=== PATIENT | female | born 1970 | race Caucasian/White ===

== ENCOUNTER 2020-10-05 05:54 | Inpatient (IN) ==
[2020-10-05] MEDS ORDERED: ceFAZolin 1,000 MG in SYRINGE 1 EACH IV ONE (07:00)
[2020-10-05] MEDS ORDERED: LACTATED RINGERS 1,000 ML IV SCH (08:00)
[2020-10-05] MEDS ORDERED: fentaNYL 100 MCG/2 ML VIAL ONE (08:59)
[2020-10-05] MEDS ORDERED: MIDAZOLAM 2 MG/2 ML VIAL ONE (09:00)
[2020-10-05] MEDS ORDERED: PHENYLEPHRINE 1 MG/10 ML SYRINGE IV ONE (09:19)
[2020-10-05] MEDS ORDERED: GLYCOPYRROLATE 0.4 MG/2 ML VIAL ONE (09:19)
[2020-10-05] MEDS ORDERED: DEXAMETHASONE 4 MG/1 ML VIAL ONE (09:19)
[2020-10-05] MEDS ORDERED: ONDANSETRON 4 MG/2 ML VIAL ONE ×2 (09:19→11:39)
[2020-10-05] MEDS ORDERED: ROCURONIUM 50 MG/5 ML VIAL IV ONE (09:19)
[2020-10-05] MEDS ORDERED: LIDOCAINE 2% 5 ML VIAL ONE (09:19)
[2020-10-05] MEDS ORDERED: propofoL 200 MG/20 ML VIAL IV ONE (09:19)
[2020-10-05] MEDS ORDERED: HYDROmorphone 2 MG/1 ML VIAL ONE (11:39)
[2020-10-05] MEDS: ONDANSETRON 4 MG/2 ML VIAL IV PRN ×2 (11:39→11:40)
[2020-10-05] MEDS: HYDROmorphone 2 MG/1 ML VIAL IV PRN ×3 (11:40→12:08)
[2020-10-05] MEDS ORDERED: HYDROmorphone 2 MG/1 ML VIAL IV PRN (11:50)
[2020-10-05] MEDS ORDERED: PROMETHAZINE 25 MG/1 ML VIAL IM PRN (11:50)
[2020-10-05] MEDS ORDERED: ONDANSETRON 4 MG/2 ML VIAL IV PRN (11:50)
[2020-10-05 12:58] LABS: Basophils # 0.1 10*3/uL (0.0-0.2); Basophils % 0.3 % (0.0-0.8); Eosinophils # 0.1 10*3/uL (0.0-0.87); Eosinophils % 0.3 % (0.00-10.9); Hematocrit 39.3 VOL% (35.7-47.0); Hemoglobin 12.3 GM/DL (12.0-16.0); Immature Granulocytes % 0.6 %; Immature Granulocytes Absolute 0.11 #; Lymphocytes # 1.1 10*3/uL (1.4-4.0); Lymphocytes % 5.7 % (21.3-54.2); Mean Corpuscular HGB Conc 31.3 GM/DL (32-36); Mean Corpuscular Volume 82.6 FL (87-102); Mean Platelet Volume 10.1 FL (9.6-12.0); Monocytes % 2.5 % (1.7-12.7); Neutrophils % 90.6 % (38.7-73.9); Platelet Count 327 T/CUMM (130-400); Red Blood Count 4.76 MC/CUMM (3.8-5.5); Red Cell Distribution Width 14.2 % (9.3-17.3)
[2020-10-05] MEDS: KETOROLAC 30 MG/1 ML VIAL IV SCH ×3 (13:01→23:53)
[2020-10-05] MEDS: LACTATED RINGERS 1,000 ML IV SCH ×2 (13:03→17:16)
[2020-10-05 13:20] LABS: Calcium 8.8 MG/DL (8.5-10.1); Osmolality,Calculated 277.4 MOS/KG (273-304); Potassium 3.9 MMOL/L (3.5-5.1)
[2020-10-05 13:23] LABS: Anisocytosis Slight; Atypical Lymphocytes Few; Lymphocytes 5 % (20-55); Microcytosis Slight; Platelet Estimate Normal; Segmented Neutrophils 94 % (50-85); Total Cells Counted 100
[2020-10-05] MEDS: METHENAMINE HIPPURATE 1 GM TABLET PO SCH (22:25)
[2020-10-05] MEDS: OMEPRAZOLE ODT 20 MG TABLET PER TUBE SCH (22:25)
[2020-10-05] MEDS: CARBIDOPA/LEVODOPA 25-100 MG TABLET PO SCH (22:26)
[2020-10-06] MEDS: LACTATED RINGERS 1,000 ML IV SCH ×3 (04:39→16:47)
[2020-10-06 05:50] LABS: Basophils # 0.1 10*3/uL (0.0-0.2); Basophils % 0.4 % (0.0-0.8); Eosinophils # 0.1 10*3/uL (0.0-0.87); Eosinophils % 0.4 % (0.00-10.9); Hemoglobin 11.3 GM/DL (12.0-16.0); Immature Granulocytes % 0.4 %; Immature Granulocytes Absolute 0.05 #; Lymphocytes # 2.2 10*3/uL (1.4-4.0); Lymphocytes % 15.3 % (21.3-54.2); Mean Corpuscular HGB Conc 31.4 GM/DL (32-36); Mean Corpuscular Volume 81.6 FL (87-102); Mean Platelet Volume 10.3 FL (9.6-12.0); Monocytes % 8.4 % (1.7-12.7); Neutrophils % 75.1 % (38.7-73.9); Platelet Count 311 T/CUMM (130-400); Red Blood Count 4.41 MC/CUMM (3.8-5.5); Red Cell Distribution Width 14.4 % (9.3-17.3); White Blood Count 14.1 T/CUMM (4-12)
[2020-10-06] MEDS: KETOROLAC 30 MG/1 ML VIAL IV SCH ×4 (05:58→23:18)
[2020-10-06 06:08] LABS: Calcium 8.4 MG/DL (8.5-10.1); Osmolality,Calculated 280.3 MOS/KG (273-304); Potassium 3.9 MMOL/L (3.5-5.1)
[2020-10-06] MEDS: ENOXAPARIN 40 MG/0.4 ML SYRINGE SUBCUT SCH (08:56)
[2020-10-06] MEDS: DESVENLAFAXINE 50 MG TABLET PO SCH (08:56)
[2020-10-06] MEDS: hydroCHLOROthiazide 12.5 MG CAPSULE PO SCH (08:56)
[2020-10-06] MEDS: OMEPRAZOLE ODT 20 MG TABLET PER TUBE SCH ×2 (08:56→21:57)
[2020-10-06] MEDS: METHENAMINE HIPPURATE 1 GM TABLET PO SCH ×2 (08:57→21:57)
[2020-10-06] MEDS: CARBIDOPA/LEVODOPA 25-100 MG TABLET PO SCH ×2 (08:57→21:57)
[2020-10-07] MEDS: LACTATED RINGERS 1,000 ML IV SCH (02:02)
[2020-10-07] MEDS: KETOROLAC 30 MG/1 ML VIAL IV SCH ×2 (06:01→13:06)
[2020-10-07] MEDS ORDERED: CEFUROXIME 500 MG TABLET PO SCH (09:00)
[2020-10-07] MEDS: CARBIDOPA/LEVODOPA 25-100 MG TABLET PO SCH (09:37)
[2020-10-07] MEDS: OMEPRAZOLE ODT 20 MG TABLET PER TUBE SCH (09:37)
[2020-10-07] MEDS: DESVENLAFAXINE 50 MG TABLET PO SCH (09:37)
[2020-10-07] MEDS: METHENAMINE HIPPURATE 1 GM TABLET PO SCH (09:37)
[2020-10-07] MEDS: hydroCHLOROthiazide 12.5 MG CAPSULE PO SCH (09:37)
[2020-10-07] MEDS: ENOXAPARIN 40 MG/0.4 ML SYRINGE SUBCUT SCH (09:38)
[2020-10-07 13:27] VITALS: BP 120/60
== END 2020-10-07 14:46 | disposition home health service (06) | DRG 327 ==
LOC: N.OR 05:54 → N.SDSINP 05:55 → N.5E 12:32
PROVIDERS: ADMIT Surgery; ATTEND Surgery